=== PATIENT | female | born 1985 | race Two or more races ===

== ENCOUNTER 2023-07-18 16:54 | Emergency (ER) | payer BC ==
[2023-07-18 17:17] VITALS: BP 133/79; PULSE 70; RESP 16; TEMP 98.1; BMI 29.9
[2023-07-18 17:55] LABS: HCG,QUALITATIVE URINE Negative
[2023-07-18 19:18] LABS: HEMATOCRIT 46.3 % (32.4-45.2); HEMOGLOBIN 15.4 G/dL (10.7-15.3); MCH 28.3 pg (25.7-33.7); MCHC 33.2 g/dl (32.0-36.0); MEAN CELL VOLUME 85.3 fl (80-96); MEAN PLT VOLUME 7.5 fl (7.5-11.1); RBC 5.43 10^6/uL (3.60-5.2); RDW 14.7 % (11.6-15.6)
[2023-07-18 19:33] LABS: ALBUMIN 4.6 g/dl (3.4-5.0); BILIRUBIN,TOTAL 0.5 mg/dl (0.2-1); CALCIUM 9.5 mg/dl (8.5-10.1); CREATININE 0.7 mg/dl (0.6-1.3); POTASSIUM 3.8 mmol/L (3.5-5.1); TOT PROT 6.9 g/dl (6.4-8.2)
[2023-07-18 20:45] LABS: PLATELET ESTIMATE ADEQUATE
== END 2023-07-18 21:30 | disposition home or self-care (01) ==
LOC: FER 16:54
DX: R10.31 Right lower quadrant pain (principal); R11.0 Nausea
CPT/HCPCS: 36415; 74177-TC; 76830-TC; 80053; 81003; 81015; 84703; 85025; 87086; 87186; 99285-25; Q9967